=== PATIENT | female | born 1955 | race Caucasian/White ===

== ENCOUNTER → 2016-11-09 | Day surgery (SDC) | payer OTHER ==
[2016-11-07 09:36] VITALS: BMI 28.3
[~2016-11-09] MED LIST: SIMETHICONE 40 MG/0.6 ML DROPS 2,000 MG/30 ML BOTTLE PO ONE
== END ==
LOC: ORWHC2ENDO 06:21
DX: I99.8 Other disorder of circulatory system (principal); D50.9 Iron deficiency anemia, unspecified; R19.5 Other fecal abnormalities
CPT/HCPCS: 91110

== ENCOUNTER → 2017-10-25 | Outpatient (CLI) | payer OTHER ==
[2017-10-25 18:39] LABS: Basophils % (A) 0 %; Eosinophils # (A) 0.2 k/uL (0-0.7); Eosinophils % (A) 2 %; HCT 35.3 % (34.0-46.0); HGB 11.4 gm/dL (11.4-16.0); Lymphocytes # (A) 0.9 k/uL (1.0-4.8); Lymphocytes % (A) 8 %; MCH 34.1 pg (25.0-35.0); MCHC 32.4 g/dL (31.0-37.0); MCV 105.2 fL (80.0-100.0); Macrocytosis Slight; Mean Platelet Volume 8.4; Monocytes # (A) 0.7 k/uL (0-1.0); Monocytes % (A) 7 %; Neutrophils # (A) 8.8 k/uL (1.3-7.7); Neutrophils % (A) 81 %; Platelet Count 343 k/uL (150-450); RBC 3.36 m/uL (3.80-5.40); RDW 12.5 % (11.5-15.5); WBC 10.8 k/uL (3.8-10.6)
[2017-10-25 18:44] LABS: ALT 18 U/L (9-52); AST 19 U/L (14-36); Albumin 3.9 g/dL (3.5-5.0); Alkaline Phosphatase 82 U/L (38-126); Anion Gap 12 mmol/L; Blood Urea Nitrogen 18 mg/dL (7-17); Calcium 9.4 mg/dL (8.4-10.2); Carbon Dioxide 26 mmol/L (22-30); Chloride 100 mmol/L (98-107); Cholesterol 157 mg/dL (<200); Glucose 115 mg/dL (74-99); HDL Cholesterol 48 mg/dL (40-60); LDL Cholesterol,Calculated 91 mg/dL (0-99); Potassium 4.3 mmol/L (3.5-5.1); Sodium 138 mmol/L (137-145); Total Bilirubin 0.2 mg/dL (0.2-1.3); Total Protein 6.9 g/dL (6.3-8.2); Triglycerides 91 mg/dL (<150)
[2017-10-25 18:58] LABS: T4, Free (Free Thyroxine) 1.15 ng/dL (0.78-2.19)
[2017-10-26 16:49] LABS: Iron Saturation 12.33 (12.00-45.00)
[2017-10-27 02:53] LABS: Hemoglobin A1C 5.1 % (4.0-6.0)
== END | disposition home or self-care (01) ==
LOC: MMGSC 14:24
PROVIDERS: ATTEND Family Medicine
DX: D64.9 Anemia, unspecified (principal); E78.5 Hyperlipidemia, unspecified; I25.10 Atherosclerotic heart disease of native coronary artery without angina pectoris; I10 Essential (primary) hypertension
CPT/HCPCS: 36415; 80053; 80061; 82728; 83036; 83540; 83550; 84439; 84443; 85025

== ENCOUNTER 2023-01-25 12:33 | Day surgery (SDC) | payer MEDICARE ==
[~2023-01-25 12:33] MED LIST changes: +LACTATED RINGERS 1,000 ML IV SCH; -SIMETHICONE 40 MG/0.6 ML DROPS 2,000 MG/30 ML BOTTLE PO ONE
[2023-01-25] MEDS ORDERED: ONDANSETRON 4 MG/2 ML VIAL ONE (14:22)
[2023-01-25] MEDS ORDERED: DEXAMETHASONE SOD PHOSPHATE 4 MG/ML 1 ML VIAL IVP ONE (14:22)
[2023-01-25] MEDS ORDERED: ONDANSETRON 4 MG/2 ML VIAL IVP ONE (14:22)
[2023-01-25] MEDS ORDERED: PROPOFOL 10 MG/ML 20 ML VIAL IV ONE ×2 (14:24)
[2023-01-25] MEDS ORDERED: LIDOCAINE 2% INJ 20 MG/ML (2 ML VIAL) ONE (14:24)
[2023-01-25] MEDS ORDERED: GLYCOPYRROLATE 0.2 MG/ML 2 ML VIAL ONE (14:24)
[2023-01-25] MEDS ORDERED: SUCCINYLCHOLINE CHLORIDE 200 MG/10 ML VIAL IV ONE (14:24)
[2023-01-25] MEDS ORDERED: NEOSTIGMINE 1 MG/ML 10 ML VIAL ONE (14:24)
[2023-01-25] MEDS ORDERED: MIDAZOLAM 2 MG/2 ML VIAL ONE (14:24)
[2023-01-25] MEDS ORDERED: SUGAMMADEX SODIUM 200 MG/2 ML SDV IV ONE (14:24)
[2023-01-25] MEDS ORDERED: ROCURONIUM 10 MG/ML (5 ML VIAL) IV ONE (14:24)
[2023-01-25 16:07] VITALS: RESP 16; TEMP 97.4
--- NOTE | 2023-01-25 16:46 | XR ---
EXAMINATION TYPE: XR chest 1V DATE OF EXAM: 01/25/2023 COMPARISON: None INDICATION: Postbiopsy right upper lobe TECHNIQUE: Single frontal view of the chest is obtained. FINDINGS: The heart size is normal. The pulmonary vasculature is normal. There is some fullness in the right suprahilar level. No pneumothorax is evident. IMPRESSION: 1. No pneumothorax post biopsy. 2. There is some fullness in the right hilar level, this could correlate with the lung mass on CT.
[2023-01-25] MEDS ORDERED: ALBUTEROL NEBULIZED 2.5 MG/3 ML INHALATION ONE (16:54)
--- NOTE | 2023-01-25 17:09 | CT ---
EXAMINATION TYPE: CT chest wo con DATE OF EXAM: 01/25/2023 COMPARISON: PET CT 12/27/2022 HISTORY: ION CHEST PROTOCOL CT DLP: 411.90 mGycm, Automated exposure control for dose reduction was used. CONTRAST: Performed injected with 0 mL of Isovue 300. TECHNIQUE: Axial images were obtained at 5 mm thick sections. Reconstructed images are reviewed on [facility] computer in the coronal plane. FINDINGS: Portion of the thyroid visualized is normal. There is a spiculated mass in the anterior cardiomediastinal angle measuring 3.0 x 2.3 cm. Series 7 i mage 115. This was present previously and appears essentially stable in size. No enlarged mediastinal or hilar adenopathy is evident. There is a 0.9 cm pretracheal lymph node. [facility] ascending aorta diameter at the level of the main pulmonary artery is 3.4 cm. The main pulmonary artery diameter at the bifurcation is 2.9 cm. Dense coronary artery calcification is present. No sign ificant pericardial effusion is evident. Limited CT sections are obtained through the upper abdomen. Abdomen is essentially unremarkable. IMPRESSIONS: 1. Stable appearing anterior right mid lung mass measuring 3.0 x 2.3 cm.
[2023-01-25] MEDS ORDERED: ACETAMINOPHEN TAB 500 MG TAB ONE (17:22)
[2023-01-25 17:24] VITALS: BP 108/54; PULSE 73
[2023-01-25] MEDS ORDERED: ACETAMINOPHEN TAB 500 MG TAB PO ONE (17:25)
--- NOTE | 2023-01-25 18:55 | FL ---
Intraoperative/procedural fluoroscopic services were provided. Total fluoroscopy time is 4 minutes 10 seconds with a total of 0 submitted images to PACS. Please see the operative/procedural note for fur ther details. DAP: 7.22
== END 2023-01-25 17:46 | disposition home or self-care (01) ==
LOC: ORWHC2ENDO 12:33
PROVIDERS: ATTEND Internal Medicine Critical Care Medicine
DX: C34.11 Malignant neoplasm of upper lobe, right bronchus or lung (principal); I10 Essential (primary) hypertension; I25.10 Atherosclerotic heart disease of native coronary artery without angina pectoris; E78.5 Hyperlipidemia, unspecified; J44.9 Chronic obstructive pulmonary disease, unspecified; F17.210 Nicotine dependence, cigarettes, uncomplicated; Z79.02 Long term (current) use of antithrombotics/antiplatelets; Z79.51 Long term (current) use of inhaled steroids; Z79.899 Other long term (current) drug therapy; Z95.5 Presence of coronary angioplasty implant and graft
CPT/HCPCS: 71045; 71250; 31628; 31629; 31623; 31624; 31652; S2900; J2250; J0330; J1100; J2710; J2405; J2704; J2001; 88108; 88173; 88305; 88341; 88342

== ENCOUNTER → 2023-02-28 | Outpatient (CLI) | payer MEDICARE ==
--- NOTE | 2023-01-25 15:38 | P.PCN ---
Date of Procedure: 01/25/23 Operative Findings: Preoperative Diagnosis: Right upper lobe mass Postoperative Diagnosis: Right upper lobe mass Procedure(s) Performed: Flexible bronchoscopy Robotic-assisted bronchoscopy and addition to radial ultrasound evaluation of the lung mass Robotic-assisted test monitor needle aspirate, transbronchial biopsies, transbronchial brushing of the right upper lobe mass in addition to a bronchioloalveolar lavage Endobronchial ultrasound Anesthesia: JULISAA Surgeon: Sophia Granger Estimated Blood Loss (ml): 0 Pathology: other Condition: stable Disposition: same day Operative Findings: A physical exam was performed. Informed consent was obtained from the patient after explaining all the risks (pneumothorax, life threatening bleeding, infection and adverse effects due to medications), benefits and alternatives to the procedure which the patient appeared to understand and so stated. The patient was connected to the monitoring devices. General anesthesia was induced and the patient was intubated by anesthesia. A final timeout was performed and the procedure confirmed by the attending staff bronchoscopist. The bronchoscope was inserted and the airway examined. The flexible bronchoscope was removed and the robotic bronchoscope was inserted. Registration was completed. I next guided the robotic bronchoscope using the navigation system into the right upper lobe anterior segment segment. Once in proper position, the bronchoscope was frozen. The radial EBUS probe was placed through the bronchoscope and confirmed abnormal u/s images vs normal lung. A needle was placed through the working channel and under fluoroscopic guidance, we sampled the area thought to have the mass twice. We then used a cloud biopsy pattern with ultrasound confirmation for 4 additional passes with the needle. U/S evaluation was then used to reconfirm location. Forceps were next introduced through working channel and extended the appropriate distance and 3 transbronchial biopsies were performed using fluoroscopic guidance. The u/s probe was then reinserted to confirm location. When confirmed this process was repeated for a total of 5-6 transbronchial biopsies. After reassessment with EBUS, a brush was placed through the extendable working channel for 1 pass with fluoroscopic guidance. U/S evaluation was then used to confirm location. 40ml of saline was then instilled into the area of the lesion. The robotic bron choscope was removed and the airway inspected with a flexible bronchoscope and 10 ml of effluent from the BAL was collected. The flexible bronchoscope was removed and the EBUS-TBNA bronchoscope was used to intubate the pateint through the ETT. An ultrasound examination identified all major landmarks was completed.. Entire mediastinum was evaluated including the various lymph node stations. This was done using the endobronchial ultrasound. There was no significant mediastinal lymphadenopathy identified on ultrasound. All of the identified mediastinal lymph nodes less than 5 mm in size. The patient was then extubated with the EBUS-TBNA bronchoscope and intubated with an Olympus IT bronchoscope without difficutly. The airways were inspected and cleared of secretions and blood. Fluoroscopic check for pneumothorax was negative upon completion of the procedure. There was 0 ml blood loss with the procedure.
[~2023-02-28] MED LIST changes: -LACTATED RINGERS 1,000 ML IV SCH; +REGADENOSON 0.4 MG/5 ML SYRINGE IV PRN
--- NOTE | 2023-02-28 11:01 | NM ---
EXAMINATION TYPE: NM stress lexiscan cardiolite DATE OF EXAM: 02/28/2023 COMPARISON: NONE CLINICAL INDICATION: Female, 67 years old with history of R06.0 I25.10; TECHNIQUE: After the intravenous administration of 9.7 mCi Tc 99m Sestamibi - Cardiolite resting SPE CT images acquired 45 minutes post injection. The patient received 0.4mg Lexiscan, 25.5 mCi Tc 99m Sestamibi - Stress images obtained [address] injection FINDINGS: Review of stress and rest SPECT images demonstrates a perfusion asymmetry in the apical lateral myoca rdium. Most likely are. Gated analysis shows normal wall motion with an estimated left ventricular e jection fraction of 69 %. IMPRESSION: Tiny area of perfusion asymmetry apical lateral myocardium. Favor artifact over small area of stress- induced reversible ischemia. Recommend clinical correlation
--- NOTE | 2023-02-28 12:35 | CA ---
Lexiscan Nuclear Stress Test Report Name: Katelin Parish Exam Date: 02/28/2023 09:47 Exam Location: [facility] Ht (in): 65 Wt (lb): 175 BSA: 1.87 Ordering Phys: Luis Fernando Baeza MD Referring Phys: LUIS FERNANDO BAEZA,, Technologist: Darrian Guerra Age: 67 Gender: F : 1955 Procedure CPT: Indications: R06.0 I25.10 ICD-10 Codes: Patient History: Medications: SEE LIST Meds past 24 hrs: Pretest Chest Pain: STRESS TEST Lexiscan Protocol Exercise Duration (min:sec): 01:[address] Depressions (mm): Angina Score: Byrd Score: Resting HR (bpm): 69 Peak HR (bpm): 86 Resting BP (mmHg): 150 / 77 Peak BP (mmHg): 146 / 76 MPHR: 152 Target HR: 129 % MPHR: 57 METS: 1.0 Total Dose: Peak Dose: Atropine: Double Product: 76243 BP Response: Stress Termination: INFUSION COMPLETE Stress Symptoms: FLUSHED,HEADACHE Stress Summary: ECG ANALYSIS Resting ECG: Stress ECG: CONCLUSIONS At baseline EKG showed normal sinus rhythm, normal axis, poor R- wave progression, no significant ST or T wave abnormalities. Patient recieved IV infusion of Lexiscan 0.4mg and at peak infusion EKG showed no significant change from baseline. Conclusions: 1. Normal EKG response to Lexiscan infusion 2. Nuclear imaging to be reported separately. Dr. Richard Parr DO (Electronically Signed) Final Date: 28 February 2023 12:34
== END | disposition home or self-care (01) ==
LOC: RADNMMAIN 08:20
PROVIDERS: ATTEND Thoracic Surgery (Cardiothoracic Vascular Surgery)
DX: I25.10 Atherosclerotic heart disease of native coronary artery without angina pectoris (principal); R06.00 Dyspnea, unspecified
CPT/HCPCS: 93017; 78452; A9500; J2785

== ENCOUNTER → 2023-03-06 | Outpatient (CLI) | payer MEDICARE ==
[2023-03-06 10:50] LABS: INR 0.9 (<1.2); Partial Thromboplastin Time 22.9 sec (22.0-30.0); Prothrombin Time 9.6 sec (9.0-12.0)
[2023-03-06 15:25] LABS: Appearance,Urine Clear (Clear); Bilirubin,Urine Negative (Negative); Blood,Urine Negative (Negative); Color,Urine Yellow (Yellow); Ketones,Urine Negative (Negative); Nitrite,Urine Negative (Negative); PH, Urine 6.5; Specific Gravity,Urine 1.018 (1.001-1.030); Urobilinogen,Urine 0.2 E.U./DL
[2023-03-06 15:55] LABS: Blood Urea Nitrogen 18.5 mg/dL (9.0-27.0); Carbon Dioxide 25.4 mmol/L (21.6-31.8); Chloride 104 mmol/L (96-109); Glucose 110 mg/dL (70-110); Sodium 140 mmol/L (135-145)
[2023-03-06 17:16] LABS: Basophils # (A) 0.02 X 10*3/uL (0.00-0.10); Basophils % (A) 0.2 %; Eosinophils # (A) 0 X 10*3/uL (0.04-0.35); Eosinophils % (A) 0 %; HCT 36.7 % (37.2-46.3); HGB 11.6 d/dL (12.0-15.0); Lymphocytes # (A) 0.76 X 10*3/uL (0.90-5.00); MCH 32.8 pg (27.0-32.0); MCHC 31.6 d/dL (32.0-37.0); MCV 103.7 FL (80.0-97.0); Mean Platelet Volume 10.6 FL (9.5-12.2); Monocytes # (A) 0.71 X 10*3/uL (0.20-1.00); Monocytes % (A) 8.4 %; NRBC Per 100 WBC 0 X 10*3/uL (0.00-0.01); Neutrophils # (A) 6.93 X 10*3/uL (1.80-7.70); Neutrophils % (A) 82.2 %; Platelet Count 403 X 10*3/uL (140-440); RBC 3.54 X 10*6/uL (4.10-5.20); RDW 13.8 % (11.5-14.5); WBC 8.44 X 10*3/uL (4.50-10.00)
[2023-03-06 17:27] LABS: Bacteria,Urine None Seen (None Seen)
== END | disposition home or self-care (01) ==
LOC: LABPAT 09:15
PROVIDERS: ATTEND Thoracic Surgery (Cardiothoracic Vascular Surgery)
DX: Z01.818 Encounter for other preprocedural examination (principal); C34.11 Malignant neoplasm of upper lobe, right bronchus or lung; E87.5 Hyperkalemia; R06.00 Dyspnea, unspecified; R94.31 Abnormal electrocardiogram [ECG] [EKG]; Z79.899 Other long term (current) drug therapy
CPT/HCPCS: 36415; 80051; 81001; 82565; 82947; 84520; 85025; 85610; 85730; 93005

== ENCOUNTER 2023-03-08 07:24 | Inpatient (IN) | payer MEDICARE ==
[2023-03-08] MEDS ORDERED: ONDANSETRON 4 MG/2 ML VIAL IVP ONE (07:30)
[2023-03-08] MEDS ORDERED: LACTATED RINGERS 1,000 ML IV SCH (07:30)
[2023-03-08] MEDS ORDERED: LIDOCAINE 1% (10MG/ML) FOR IV START INTRADERMA PRN (07:30)
[2023-03-08] MEDS ORDERED: MIDAZOLAM 2 MG/2 ML VIAL IV PRN (07:30)
[2023-03-08] MEDS ORDERED: DEXAMETHASONE SOD PHOSPHATE 4 MG/ML 1 ML VIAL IV ONE (07:30)
--- NOTE | 2023-03-08 09:30 | P.ANPRN ---
Procedure Note - Anesthesia - Nerve Block Performed Bilateral Erector Spinae Single Time Out Performed: Yes Date of Procedure: 03/08/23 Procedure Start Time: 09:02 Procedure Stop Time: 09:10 Location of Patient: PreOp Indication: Analgesia, Requested by Surgeon Sedation Type: Sedate with meaningful contact maintained Preparation: Sterile Prep Position: Sitting Needle Types: Pajunk Needle Gauge: 20 Ultrasound used to visualize needle placement: Yes Ultrasound used to observe medication spread: Yes Injectate: Other (see comment) (0.25% Ropivicaine 10 ml left, 10 ml right) Blood Aspirated: No Pain Paresthesia on Injection Noted: No Resistance on Injection: Normal Image Stored and Saved: Yes Events: Uneventful and Well Tolerated - Invasive Line Left Arterial Line Time Out Performed: Yes Date of Procedure: 03/08/23 Preparation: Sterile Prep Arterial Line Location: Radial Ultrasound Used: Yes Purpose - Visualization and Identification of Vasculature: Yes Needle Guage: 20 G Left radial a line Image Stored and Saved: No Narrative: Central line placement per sterile protocol utilized.
[2023-03-08] MEDS ORDERED: fentaNYL (PF) 50 MCG/ML 2 ML AMP IVP ONE (09:44)
[2023-03-08] MEDS ORDERED: LIDOCAINE 2% INJ 20 MG/ML (2 ML VIAL) ONE (09:52)
[2023-03-08] MEDS ORDERED: SODIUM CHLORIDE 0.9% (PF) 10 ML VIAL ONE (09:52)
[2023-03-08] MEDS ORDERED: KETOROLAC 30 MG/ML 1 ML VIAL ONE (09:52)
[2023-03-08] MEDS ORDERED: NEOSTIGMINE 1 MG/ML 10 ML VIAL ONE (09:52)
[2023-03-08] MEDS ORDERED: ROCURONIUM 10 MG/ML (5 ML VIAL) IV ONE (09:52)
[2023-03-08] MEDS ORDERED: WATER FOR INJECTION, STERILE 10 ML VIAL IV ONE (09:52)
[2023-03-08] MEDS ORDERED: GLYCOPYRROLATE 0.2 MG/ML 2 ML VIAL ONE (09:52)
[2023-03-08] MEDS ORDERED: ePHEDrine 50 MG/ML 1 ML VIAL ONE (09:52)
[2023-03-08] MEDS ORDERED: KETAMINE 10 MG/ML 20 ML VIAL ONE (09:52)
[2023-03-08] MEDS ORDERED: HYDROmorphone (PF) 1 MG/ML ONE (09:52)
[2023-03-08] MEDS ORDERED: ALBUTEROL HFA INHALER INHALATION ONE (09:52)
[2023-03-08] MEDS ORDERED: PHENYLEPHRINE-0.9% NACL SYG 1,000 MCG/10 ML SYRINGE ONE (09:52)
[2023-03-08] MEDS ORDERED: fentaNYL (PF) 50 MCG/ML 2 ML AMP ONE (09:52)
[2023-03-08] MEDS ORDERED: ROPIVACAINE 5 MG/ML 30 ML VIAL ONE (09:52)
[2023-03-08] MEDS ORDERED: SUCCINYLCHOLINE CHLORIDE 200 MG/10 ML VIAL IV ONE (09:52)
[2023-03-08] MEDS ORDERED: PROPOFOL 10 MG/ML 20 ML VIAL IV ONE (09:52)
[2023-03-08] MEDS ORDERED: BUPIVACAINE (PF) 0.5% 30 ML VIAL SQ ONE ×2 (11:03)
[2023-03-08] MEDS ORDERED: LACTATED RINGERS 1,000 ML IV ONE (13:10)
--- NOTE | 2023-03-08 13:37 | P.OP ---
Date of Procedure: 03/08/23 Preoperative Diagnosis: Non small cell lung cancer Postoperative Diagnosis: Same Procedure(s) Performed: 1. Bronchoscopy 2. Right robotic assisted thorascopic surgery with right upper lobectomy 3. Mediastinal lymph node dissection Anesthesia: JULISAA Surgeon: Bernardino Baeza Key Account Representative #1: Christo Salinas Estimated Blood Loss (ml): 50 Pathology: other (RUL, RUL mass mediastinal margin, LN stations 4,7,8,9,10,11,12) Condition: stable Disposition: PACU Indications for Procedure: This patient is a 67 year-old female who had an episode of hemoptysis which prompted a CT scan that showed a 3cm RUL nodule. Further work-up including PET/CT scan revealed FDG avidity in the nodule. We then pursued tissue biopsy which revealed NSCLC consistent with SCC. Given her good PFT's and good functional status, lobectomy was recommended. Operative Findings: Right upper lobe mass adherent to the mediastinal pleura. This was shaved off and a piece was sent for pathology as margin. Surgical clips left there incase this margin is positive for radiation. Description of Procedure: The patient underwent left radial arterial line placement in the pre-operative suite. She was brought back to the operating room and placed on the table in the supine position. She was intubated with a 39F left sided ELENA which was confirmed with bronchoscopy. A diagnostic bronchoscopy was also performed which revealed no lesions or abnormalities in the entire tracheo-bronchial tree. There was minimal to no secretions. The patient was then positioned in the left lateral decubitus position and her right chest was prepped and draped in the usual sterile fashion. The double lumen tube position was once again checked using bronchoscopy. A time-out was performed and antibiotics were given. The left lung was isolated. We made a 1cm incision in the 8th intercostal space anterior axillary line. The 8mm trocar was inserted into the chest bluntly. The robotic camera was inserted and there was no injury to the lung and there was good lung isolation. We placed then placed 12mm trocars 10cm anteriorly and 10cm posteriorly in the 8th intercostal space. A 4th 8mm port was placed posteriorly in the 7th ICS posteriorly. We placed a 15mm assistant manager retail port in between ports 1 and 2 10th ICS above the diaphragm. The Da Felicia Xi robot was then docked. We then approached the fissure and performed some dissection along the inter-lobar fissure using the bipolar cautery. Attention was then turned towards the inferior pulmonary ligament which was taken down using the bipolar cautery. This dissection was carried upward with the bipolar cautery posteriorly and anteriorly along the mediastinal pleura.Anteriorly the tumor was adherent to the mediastinal pleura and this was peeled off bluntly. Posteriorly we obtained level 7, 8 and 9 lymph nodes. At this point the area under and above the azygous was dissected out. Level 10 and 4 nodes were harvested here. The upper lobe bronchus was dissected free from the bronchus intermedius. The level 12 node was harvested here. I then turned my attention to the superior pulmonary vein which was circumferentially dissected free and encircled with a vessel loop taking care to preserve the middle lobe vein. The robotic white load stapler was fired across the vein. At this point, the truncus anteriorosus was identified, encircled and stapled using the robotic white load.. The 11 node was harvested at this time and the posterior ascending artery was identified next, encircled and stapled using a robotic white load. Next, the bronchus to the upper lobe was circumferentially dissected, encircled with a vessel loop and stapled using the robotic green load. Lastly, the anterior fissure was divided using serial robotic blue loads and the posterior fissure was divided using serial robotic black loads. The area where the tumor was adherent to the mediastinal pleura anterior to the azygous vein was resected avoiding injury to the phrenic nerve and sent for permanent section. Surgical clips were placed here in case this margin was positive. The lung was placed in a retrieval bag, and the right chest was irrigated with water and a leak test on the bronchus was performed which was negative. The robot was undocked, the specimen was removed from the chest cavity and a 28F chest tube was placed via the most anterior incision. The patient was extubated with an intermitternt air leak.
[2023-03-08] MEDS: HYDROmorphone 0.5 MG/0.5 ML SYRINGE IVP PRN ×4 (13:55→23:21)
[2023-03-08] MEDS ORDERED: ONDANSETRON 4 MG/2 ML VIAL IVP PRN (14:12)
[2023-03-08] MEDS ORDERED: traMADol 50 MG TAB PO PRN (14:12)
[2023-03-08] MEDS ORDERED: IPRATROPIUM-ALBUTEROL 3 ML NEB IH PRN (14:12)
[2023-03-08] MEDS ORDERED: DEXTROSE 5%-0.45% NACL 1,000 ML IV SCH (14:12)
[2023-03-08] MEDS ORDERED: HYDROmorphone 0.5 MG/0.5 ML SYRINGE IVP ONE (14:18)
--- NOTE | 2023-03-08 14:25 | XR ---
EXAMINATION TYPE: XR chest 1V portable DATE OF EXAM: 03/08/2023 2:19 PM COMPARISON: Chest radiographs from 03/08/2023 TECHNIQUE: XR chest 1V portable Portable AP radiograph of the chest. CLINICAL INDICATION:Female, 67 years old with history of post lobectomy; FINDINGS: Lungs/Pleura: Postsurgical changes from right-sided lobectomy with surgical clips in the right pulmon usman hilum. No sizable pneumothorax. Pulmonary vascularity: Unremarkable. Heart/mediastinum: Cardiomediastinal silhouette is enlarged.. Atherosclerotic calcifications are see n in the aorta. Musculoskeletal: No acute osseous pathology. Levoscoliotic curvature of the thoracic spine. Other findings: Subcutaneous emphysema demonstrated within the right neck. Surgical clips in the neck . Lines/Tubes: Right-sided chest tube is directed towards the lung apex. IMPRESSION: Postsurgical changes from right-sided lobectomy with right-sided chest tube directed towards the lung apex with right neck subcutaneous emphysema. No sizable pneumothorax.
--- NOTE | 2023-03-08 15:09 | P.CNPUL ---
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 Endobronchial ultrasound was negative for mediastinal lymphadenopathy. Early- stage non-small cell lung cancer. She was referred to cardiothoracic surgery for a right upper lobectomy. She was brought in electively today. She did undergo a bronchoscopy, right robotic-assisted thoracoscopic surgery with right upper lobectomy, mediastinal lymph node dissection. She is seen today in the recovery room. She is awake and alert. Currently on 3 L nasal cannula with O2 saturations in the mid to upper 90s. Afebrile. Hemodynamically stable. Right- sided chest tube remains in place to Pleur-evac. Positive leak. 60 ML's of serosanguineous fluid out thus far. Chest x-ray reveals postsurgical changes from right-sided lobectomy with right-sided chest tube in place. Right neck subcutaneous emphysema. No sizable pneumothorax. She is on cefazolin. Continued on DuoNeb inhalations. Heparin for DVT prophylaxis. Educated regarding the use of the incentive spirometer. Review of Systems REVIEW OF SYSTEMS: CONSTITUTIONAL: Denies any recent significant weight loss or weight gain. EYES: Denies change in vision. EARS, NOSE, MOUTH, THROAT: Denies headaches, denies sore throat. CARDIOVASCULAR: Denies chest pain, palpitations or syncopal episodes. RESPIRATORY: Denies shortness of breath, cough, congestion or hemoptysis. GASTROINTESTINAL: Denies change in appetite, denies abdominal pain GENITOURINARY: Denies hematuria, denies infections. MUSKULOSKELETAL: Positive for pain at the right chest surgical site. INTEGUMENTARY: Denies rash, denies eczema. NEUROLOGICAL: Denies recent memory loss, no recent seizure activity. PSYCHIATRIC: Denies anxiety, denies depression. HEMATOLOGIC/LYMPHATIC: Denies anemia, denies enlarged lymph nodes. Past Medical History Past Medical History: Asthma, Cancer, Hyperlipidemia, Hypertension Additional Past Medical History / Comment(s): ANEMIA, nodule on lung, recent dx. lung cancer History of Any Multi-Drug Resistant Organisms: None Reported Past Surgical History: Heart Catheterization With Stent Additional Past Surgical History / Comment(s): STENTS X 3, recent bronch. in January. D & C. COLONOSCOPY. EGD. rt carotid endartectomy Past Anesthesia/Blood Transfusion Reactions: No Reported Reaction Additional Past Anesthesia/Blood Transfusion Reaction / Comment(s): HAD BLOOD TRANSFUSION 09/16/16 no issues Date of Last Stent Placement:: 08/2015 Smoking Status: Current every day smoker - Past Family History Father Family Medical History: Cancer Medications and Allergies Home Medications Medication Instructions Recorded Confirmed Type Clopidogrel Bisulfate [Clopidogrel] 75 mg PO DAILY 11/07/16 03/08/23 History Enalapril Maleate 20 mg PO BID 11/07/16 03/08/23 History Ferrous Sulfate [Feosol] 325 mg PO BID 11/07/16 03/08/23 History NIFEdipine XL [Procardia XL] 60 mg PO DAILY 11/07/16 03/08/23 History carvediloL [Coreg] 12.5 mg PO BID 11/07/16 03/08/23 History Isosorbide Mononitrate [Isosorbide 30 mg PO DAILY 01/23/23 03/08/23 History Mononitrate ER] Montelukast [Singulair] 10 mg PO HS 01/23/23 03/08/23 History Multivitamins, Thera [Multivitamin 1 tab PO DAILY 01/23/23 03/08/23 History (formulary)] Rosuvastatin Calcium 40 mg PO DAILY 01/23/23 03/08/23 History Aspirin 81 mg PO DAILY 03/05/23 03/08/23 History Ezetimibe [Zetia] 10 mg PO DAILY 03/05/23 03/08/23 History Solifenacin Succinate [Vesicare] 5 mg PO DAILY 03/05/23 03/08/23 History Allergies Allergy/AdvReac Type Severity Reaction Status Date / Time No Known Allergies Allergy Verified 03/08/23 08:07 Physical Exam Vitals: Vital Signs Temp Pulse Resp BP BP Pulse Ox 03/08/23 14:45 66 14 127/69 98 03/08/23 14:30 63 14 131/64 97 03/08/23 14:15 73 14 127/63 97 03/08/23 14:04 69 14 140/67 95 03/08/23 13:49 73 14 147/69 95 03/08/23 13:34 96.8 F L 71 12 155/74 98 03/08/23 09:30 65 16 122/64 96 03/08/23 08:13 97.2 F L 70 16 132/64 96 Intake and Output 03/07/23 03/08/23 03/08/23 22:59 06:59 14:59 Intake Total 2150 Output Total 310 Balance 1840 Intake: IV 2150 Output: Urine 200 Estimated Blood Loss 110 Other: Weight 81 kg GENERAL EXAM: Alert, pleasant 67-year-old female patient, on 3 L nasal cannula, fairly comfortable in no apparent distress. HEAD: Normocephalic. EYES: Normal reaction of pupils, equal size. NOSE: Clear with pink turbinates. THROAT: No erythema or exudates. NECK: No masses, no JVD. CHEST: No chest wall deformity. Right-sided chest tube in placed to Pleur-evac. Positive leak. LUNGS: Equal air entry with crackles, few scattered rhonchi of the right lung base. CVS: S1 and S2 normal with no audible murmur, regular rhythm. ABDOMEN: No hepatosplenomegaly, normal bowel sounds, no guarding or rigidity. SPINE: No scoliosis or deformity SKIN: No rashes CENTRAL NERVOUS SYSTEM: No focal deficits, tone is normal in all 4 extremities. EXTREMITIES: There is no peripheral edema. No clubbing, no cyanosis. Peripheral pulses are intact. Results - Laboratory Findings CBC and BMP: 03/09/23 06:31 03/09/23 06:31 Abnormal lab findings: Abnormal Labs 03/06/23 09:49 Crossmatch See Detail - Diagnostic Findings Chest x-ray: image reviewed Assessment and Plan Assessment: Early-stage non-small cell lung cancer/squamous cell carcinoma of the right lung. Status post bronchoscopy, right robotic-assisted thorascopic surgery with right upper lobectomy, mediastinal lymph node dissection. Postoperative day #0. Acute hypoxemic respiratory failure secondary to above, currently on 3 L nasal cannula Chronic and ongoing tobacco dependence, suspected COPD Coronary artery disease Hypertension Hyperlipidemia Plan: The patient was seen and evaluated Chest x-ray, labs and medications reviewed Continue bronchodilators Heparin for DVT prophylaxis Educated regarding the use of the incentive spirometer Educated regarding the importance of complete smoking cessation We will continue to follow and make further recommendations based on her clinical status I have personally seen and examined the patient, performed the documentation and the assessment and plan as written. Number of minutes spent on the visit: 20.
[2023-03-08] MEDS: IPRATROPIUM-ALBUTEROL 3 ML NEB IH SCH ×2 (15:49→20:21)
[2023-03-08] MEDS: carvediloL 12.5 MG TAB PO SCH (17:42)
[2023-03-08] MEDS: KETOROLAC 15 MG/ML 1 ML VIAL IVP SCH ×2 (17:42→23:20)
[2023-03-08] MEDS: FERROUS SULFATE 325 MG TAB PO SCH (20:11)
[2023-03-08] MEDS: ACETAMINOPHEN TAB 325 MG TAB PO PRN (20:11)
[2023-03-08] MEDS: lisinopriL 20 MG TAB PO SCH (20:11)
[2023-03-08] MEDS: MONTELUKAST 10 MG TAB PO SCH (21:21)
[2023-03-08] MEDS: traMADol 50 MG TAB PO PRN (22:06)
[2023-03-08] MEDS: HEPARIN SODIUM,PORCINE/PF 5,000 UNIT/0.5 ML SYRINGE SQ SCH (23:57)
[2023-03-09] MEDS: HYDROmorphone 0.5 MG/0.5 ML SYRINGE IVP PRN ×3 (02:25→11:53)
[2023-03-09] MEDS: carvediloL 12.5 MG TAB PO SCH ×2 (06:29→20:56)
[2023-03-09] MEDS: PANTOPRAZOLE 40 MG TABLET PO SCH (06:29)
[2023-03-09] MEDS: KETOROLAC 15 MG/ML 1 ML VIAL IVP SCH ×3 (06:29→18:21)
[2023-03-09 06:50] LABS: Basophils % (A) 0 %; Eosinophils % (A) 0 %; HCT 36.5 % (34.0-46.0); HGB 11.3 gm/dL (11.4-16.0); Hypochromasia Slight; Lymphocytes # (A) 0.7 k/uL (1.0-4.8); Lymphocytes % (A) 7 %; MCH 32.5 pg (25.0-35.0); MCV 104.9 fL (80.0-100.0); Macrocytosis Slight; Monocytes # (A) 0.8 k/uL (0-1.0); Monocytes % (A) 8 %; Neutrophils # (A) 8.5 k/uL (1.3-7.7); Neutrophils % (A) 84 %; Platelet Count 332 k/uL (150-450); RBC 3.48 m/uL (3.80-5.40); RDW 13.3 % (11.5-15.5); WBC 10.1 k/uL (3.8-10.6)
[2023-03-09 06:59] LABS: African American GFR (CKD) 85 (>60 ml/min/1.73 sqM); Anion Gap 5 mmol/L; Blood Urea Nitrogen 14 mg/dL (7-17); Calcium 8.7 mg/dL (8.4-10.2); Carbon Dioxide 28 mmol/L (22-30); Chloride 103 mmol/L (98-107); Glucose 111 mg/dL (74-99); Non-African American GFR(CKD) 74 (>60 ml/min/1.73 sqM); Potassium 4.8 mmol/L (3.5-5.1); Sodium 136 mmol/L (137-145)
[2023-03-09] MEDS ORDERED: MAGNESIUM HYDROXIDE 2,400 MG/30 ML CUP PO PRN (07:53)
--- NOTE | 2023-03-09 08:36 | XR ---
EXAMINATION TYPE: XR chest 1V DATE OF EXAM: 03/08/2023 COMPARISON: 03/08/2023 INDICATION: Postlobectomy TECHNIQUE: Single frontal view of the chest is obtained. FINDINGS: The heart size is normal. The pulmonary vasculature is normal. Some mild plate atelectasis is developing at the left lower peripheral lung base. There is mild eleva tion of the right diaphragm. Right-sided chest tube is present. Subcutaneous emphysema seen in the ne ck. No pneumothorax is evident. There is some fullness at the right hilar postsurgical site which is stable from recent comparison. IMPRESSION: 1. Right-sided chest tube, no pneumothorax evident. 2. Diminishing right subcutaneous emphysema.
--- NOTE | 2023-03-09 09:06 | P.PN ---
Subjective Progress Note Date: 03/09/23 Principal diagnosis: Non-small cell lung cancer. Previous medical history of tobacco dependence, COPD, coronary artery disease status post PCI in 2016, hypertension, hyperlipidemia, right carotid endarterectomy POD #1 bronchoscopy, right robotic assisted thoracoscopic surgery with right upper lobectomy, mediastinal lymph node dissection The patient was seen and examined his breathing sitting up in a recliner on the cardiac stepdown unit in no acute distress. States post surgical pain is mostly controlled with current medication regimen, denies shortness of breath. Curr ently on room air. Right pleural chest tube present to continuous wall suction, no air leak present. Labs, chest x-ray reviewed. No other new concerns. Objective - Vital Signs Vital signs: Vital Signs Temp 98 F 03/09/23 00:00 Pulse 80 03/09/23 04:00 Resp 18 03/09/23 04:00 BP 138/74 03/09/23 04:00 Pulse Ox 97 03/09/23 04:00 FiO2 Intake & Output 03/08/23 03/09/23 03/09/23 18:59 06:59 18:59 Intake Total 2150 10 Output Total 385 2000 Balance 1765 -1999 10 Weight 81 kg Intake: IV 2150 10 Invasive Line 1 5 Invasive Line 2 5 Output: Chest Tube Drainage 75 Chest Tube Right 75 Urine 200 2000 Estimated Blood Loss 110 Other: Voiding Method Indwelling Catheter Indwelling Catheter Toilet - Exam CONSTITUTIONAL: Appears comfortable, cooperative, no acute distress RESPIRATORY: Lungs sounds diminished bilaterally. Respirations even, nonlabored. Currently on room air with oxygen saturation 97%. Able to achieve 500 mL on incentive spirometry. Strong cough. CARDIOVASCULAR: S1, S2 present. Regular rate and rhythm, sinus rhythm on telemetry. Palpable peripheral pulses bilaterally. No edema present. No calf pain or tenderness noted. SCDs present. GASTROINTESTINAL: Abdomen soft, nontender, nondistended. Hypoactive bowel sounds present 4 quadrants. Tolerating diet GENITOURINARY: Christiansen was present overnight, discontinued this morning, due to void INTEGUMENTARY: Skin is warm and dry with evidence of good perfusion NEUROLOGIC: Cranial nerves II through XII intact MUSKULOSKELETAL: Able to move all extremities, strength equal bilaterally, gait normal PSYCHIATRIC: Alert and oriented to person place and time, appropriate affect, intact judgment and insight INVASIVE LINES AND TUBES: Right pleural chest tube present and connected to wall suction, no air leaks present, 180 mL serosanguineous drainage since surgery - Allied health notes Allied health notes reviewed: nursing - Labs CBC & Chem 7: 03/09/23 06:31 03/09/23 06:31 Labs: Abnormal Lab Results - Last 24 Hours (Table) 03/06/23 03/09/23 03/09/23 Range/Units 09:49 06:31 06:31 RBC 3.48 L (3.80-5.40) m/uL Hgb 11.3 L (11.4-16.0) gm/dL MCV 104.9 H (80.0-100.0) fL Neutrophils # 8.5 H (1.3-7.7) k/uL Lymphocytes # 0.7 L (1.0-4.8) k/uL Sodium 136 L (137-145) mmol/L Glucose 111 H (74-99) mg/dL Crossmatch See Detail - Imaging and Cardiology Chest x-ray: report reviewed, image reviewed Assessment and Plan Assessment: Non-small cell lung cancer, status post bronchoscopy, right robotic assisted thoracoscopic surgery with right upper lobectomy, mediastinal lymph node dissection Tobacco dependence COPD Coronary artery disease status post PCI in 2016 Hypertension Hyperlipidemia Previous right carotid endarterectomy Plan: Chest tube placed to waterseal, monitor output Follow-up on pathology Encourage incentive spirometry use 10 times every hour while awake. Bronchodilators per pulmonology Increase activity, ambulate as tolerated GI/DVT prophylaxis Pain control with current medication regimen We'll repeat chest x-ray in the morning More recommendations to follow based on patient's progress
[2023-03-09] MEDS: IPRATROPIUM-ALBUTEROL 3 ML NEB IH SCH ×4 (09:09→21:05)
[2023-03-09] MEDS: SENNOSIDES-DOCUSATE SODIUM 1 EACH TAB PO SCH ×2 (09:11→20:56)
[2023-03-09] MEDS: HEPARIN SODIUM,PORCINE/PF 5,000 UNIT/0.5 ML SYRINGE SQ SCH ×2 (09:11→17:35)
[2023-03-09] MEDS: ATORVASTATIN 80 MG TAB PO SCH (09:11)
[2023-03-09] MEDS: EZETIMIBE 10 MG TAB PO SCH (09:11)
[2023-03-09] MEDS: FERROUS SULFATE 325 MG TAB PO SCH ×2 (09:11→20:56)
[2023-03-09] MEDS: CLOPIDOGREL 75 MG TAB PO SCH (09:11)
[2023-03-09] MEDS: ASPIRIN 81 MG PO SCH (09:11)
[2023-03-09] MEDS: TROSPIUM CHLORIDE 20 MG TABLET PO SCH (09:12)
[2023-03-09] MEDS: MULTIVITAMINS, THERA 1 EACH TAB PO SCH (09:12)
[2023-03-09] MEDS: ISOSORBIDE MONONITRATE ER 30 MG TAB.ER.24H PO SCH (09:12)
[2023-03-09] MEDS: lisinopriL 20 MG TAB PO SCH ×2 (11:48→20:55)
--- NOTE | 2023-03-09 13:55 | P.PN ---
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 Endobronchial ultrasound was negative for mediastinal lymphadenopathy. Early- stage non-small cell lung cancer. She was referred to cardiothoracic surgery for a right upper lobectomy. She was brought in electively today. She did undergo a bronchoscopy, right robotic-assisted thoracoscopic surgery with right upper lobectomy, mediastinal lymph node dissection. She is seen today in the recovery room. She is awake and alert. Currently on 3 L nasal cannula with O2 saturations in the mid to upper 90s. Afebrile. Hemodynamically stable. Right- sided chest tube remains in place to Pleur-evac. Positive leak. 60 ML's of serosanguineous fluid out thus far. Chest x-ray reveals postsurgical changes from right-sided lobectomy with right-sided chest tube in place. Right neck subcutaneous emphysema. No sizable pneumothorax. She is on cefazolin. Continued on DuoNeb inhalations. Heparin for DVT prophylaxis. Educated regarding the use of the incentive spirometer. The patient is seen today 03/09/2023 in follow-up on the selective care unit. She is currently sitting up at the bedside. Awake and alert in no acute distress. Maintaining good O2 saturation in the 90s on room air. Afebrile. Hemodynamically stable. X-ray reveals right-sided chest tube in place. No pneumothorax noted. Diminishing right subcutaneous emphysema. Chest tube remains to Pleur-evac and can continuous wall suction. No air leak noted. Approximately 180 MLS serosanguineous return since surgery. She is working well with the incentive spirometer. Continued on bronchodilators. Heparin for DVT prophylaxis. Pain is well controlled. Objective - Vital Signs Vital signs: Vital Signs Temp 97.4 F L 03/09/23 12:00 Pulse 90 03/09/23 12:27 Resp 18 03/09/23 12:00 BP 102/65 03/09/23 12:00 Pulse Ox 91 L 03/09/23 12:00 FiO2 Intake & Output 03/08/23 03/09/23 03/09/23 18:59 06:59 18:59 Intake Total 2150 540 Output Total 385 2000 Balance 1765 -1999 540 Weight 81 kg Intake: IV 2150 20 Invasive Line 1 5 Invasive Line 2 15 Oral 520 Output: Chest Tube Drainage 75 Chest Tube Right 75 Urine 200 2000 Estimated Blood Loss 110 Other: Voiding Method Indwelling Catheter Indwelling Catheter Toilet - Exam GENERAL EXAM: Alert, pleasant 67-year-old female, on room air, fairly comfortable in no apparent distress. HEAD: Normocephalic. EYES: Normal reaction of pupils, equal size. NOSE: Clear with pink turbinates. THROAT: No erythema or exudates. NECK: No masses, no JVD. CHEST: No chest wall deformity. Right-sided chest tube in placed to Pleur-evac. No noted leak. LUNGS: Equal air entry with crackles, few scattered rhonchi of the right lung base. CVS: S1 and S2 normal with no audible murmur, regular rhythm. ABDOMEN: No hepatosplenomegaly, normal bowel sounds, no guarding or rigidity. SPINE: No scoliosis or deformity SKIN: No rashes CENTRAL NERVOUS SYSTEM: No focal deficits, tone is normal in all 4 extremities. EXTREMITIES: There is no peripheral edema. No clubbing, no cyanosis. Peripheral pulses are intact. - Labs CBC & Chem 7: 03/09/23 06:31 03/09/23 06:31 Labs: Abnormal Lab Results - Last 24 Hours (Table) 03/09/23 03/09/23 Range/Units 06:31 06:31 RBC 3.48 L (3.80-5.40) m/uL Hgb 11.3 L (11.4-16.0) gm/dL MCV 104.9 H (80.0-100.0) fL Neutrophils # 8.5 H (1.3-7.7) k/uL Lymphocytes # 0.7 L (1.0-4.8) k/uL Sodium 136 L (137-145) mmol/L Glucose 111 H (74-99) mg/dL Assessment and Plan Assessment: Early-stage non-small cell lung cancer/squamous cell carcinoma of the right lung. Status post bronchoscopy, right robotic-assisted thorascopic surgery with right upper lobectomy, mediastinal lymph node dissection. Postoperative day #1. Acute hypoxemic respiratory failure secondary to above, recovered and currently on room air Chronic and ongoing tobacco dependence, suspected COPD Coronary artery disease Hypertension Hyperlipidemia Plan: The patient was seen and evaluated Chest x-ray, labs and medications reviewed Continue bronchodilators Heparin for DVT prophylaxis Working well with the incentive spirometer Again educated regarding the importance of complete smoking cessation We will continue to follow I have personally seen and examined the patient, performed the documentation and the assessment and plan as written. Number of minutes spent on the visit: 10.
[2023-03-09] MEDS: ACETAMINOPHEN TAB 325 MG TAB PO PRN (16:40)
[2023-03-09] MEDS: traMADol 50 MG TAB PO PRN (16:40)
[2023-03-09] MEDS: MONTELUKAST 10 MG TAB PO SCH (20:56)
[2023-03-10] MEDS: HEPARIN SODIUM,PORCINE/PF 5,000 UNIT/0.5 ML SYRINGE SQ SCH ×2 (00:29→08:09)
[2023-03-10] MEDS: KETOROLAC 15 MG/ML 1 ML VIAL IVP SCH ×2 (00:29→05:31)
[2023-03-10] MEDS: HYDROmorphone 0.5 MG/0.5 ML SYRINGE IVP PRN ×2 (00:31→08:09)
[2023-03-10 05:10] LABS: HCT 33.1 % (34.0-46.0); HGB 10.3 gm/dL (11.4-16.0); MCH 31.9 pg (25.0-35.0); MCHC 31.1 g/dL (31.0-37.0); MCV 102.7 fL (80.0-100.0); Macrocytosis Slight; Mean Platelet Volume 8.4; Platelet Count 328 k/uL (150-450); RBC 3.22 m/uL (3.80-5.40); RDW 13.5 % (11.5-15.5); WBC 9.9 k/uL (3.8-10.6)
[2023-03-10 05:25] LABS: African American GFR (CKD) 75 (>60 ml/min/1.73 sqM); Anion Gap 6 mmol/L; Blood Urea Nitrogen 22 mg/dL (7-17); Calcium 8.8 mg/dL (8.4-10.2); Carbon Dioxide 27 mmol/L (22-30); Chloride 100 mmol/L (98-107); Glucose 93 mg/dL (74-99); Non-African American GFR(CKD) 65 (>60 ml/min/1.73 sqM); Potassium 4.7 mmol/L (3.5-5.1); Sodium 133 mmol/L (137-145)
[2023-03-10] MEDS: traMADol 50 MG TAB PO PRN (05:31)
[2023-03-10] MEDS: PANTOPRAZOLE 40 MG TABLET PO SCH (07:00)
[2023-03-10] MEDS: carvediloL 12.5 MG TAB PO SCH (07:00)
[2023-03-10] MEDS: IPRATROPIUM-ALBUTEROL 3 ML NEB IH SCH ×2 (08:04→08:25)
[2023-03-10] MEDS: lisinopriL 20 MG TAB PO SCH (08:12)
[2023-03-10] MEDS: FERROUS SULFATE 325 MG TAB PO SCH (08:12)
[2023-03-10] MEDS: ATORVASTATIN 80 MG TAB PO SCH (08:12)
[2023-03-10] MEDS: SENNOSIDES-DOCUSATE SODIUM 1 EACH TAB PO SCH (08:12)
[2023-03-10] MEDS: ASPIRIN 81 MG PO SCH (08:12)
[2023-03-10] MEDS: ISOSORBIDE MONONITRATE ER 30 MG TAB.ER.24H PO SCH (08:12)
[2023-03-10] MEDS: EZETIMIBE 10 MG TAB PO SCH (08:12)
[2023-03-10] MEDS: CLOPIDOGREL 75 MG TAB PO SCH (08:12)
[2023-03-10] MEDS: MULTIVITAMINS, THERA 1 EACH TAB PO SCH (08:12)
[2023-03-10] MEDS: TROSPIUM CHLORIDE 20 MG TABLET PO SCH (08:12)
[2023-03-10] MEDS ORDERED: HYDROmorphone 0.5 MG/0.5 ML SYRINGE IVP PRN (08:28)
--- NOTE | 2023-03-10 09:33 | P.PN ---
Subjective Progress Note Date: 03/10/23 Principal diagnosis: Non-small cell lung cancer. Previous medical history of tobacco dependence, COPD, coronary artery disease status post PCI in 2016, hypertension, hyperlipidemia, right carotid endarterectomy POD #2 bronchoscopy, right robotic assisted thoracoscopic surgery with right upper lobectomy, mediastinal lymph node dissection The patient was seen and examined his breathing sitting up in a recliner on the cardiac stepdown unit in no acute distress. States post surgical pain is mostly controlled with current medication regimen, denies shortness of breath. Curr ently on room air. [facility], no air leak present. Labs, chest x-ray reviewed, subcutaneous air present x-ray which is somewhat expected and inconsequential. No other new concerns. Objective - Vital Signs Vital signs: Vital Signs Temp 98.2 F 03/10/23 04:00 Pulse 72 03/10/23 04:00 Resp 20 03/10/23 04:00 BP 130/74 03/10/23 04:00 Pulse Ox 93 L 03/10/23 08:22 FiO2 Intake & Output 03/09/23 03/10/23 03/10/23 18:59 06:59 18:59 Intake Total 560 Balance 560 Intake: IV 40 Invasive Line 1 5 Invasive Line 2 15 Invasive Line 4 20 Oral 520 Other: Voiding Method Toilet Toilet # Voids 1 - Exam CONSTITUTIONAL: Appears comfortable, cooperative, no acute distress RESPIRATORY: Lungs sounds diminished bilaterally. Respirations even, nonlabored. Currently on room air with oxygen saturation 90%. Able to achieve 500 mL on incentive spirometry. Strong cough. CARDIOVASCULAR: S1, S2 present. Regular rate and rhythm, sinus rhythm on telemetry. Palpable peripheral pulses bilaterally. No edema present. No calf pain or tenderness noted. SCDs present. GASTROINTESTINAL: Abdomen soft, nontender, nondistended. Active bowel sounds present 4 quadrants. Tolerating diet GENITOURINARY: Continues to void INTEGUMENTARY: Skin is warm and dry with evidence of good perfusion NEUROLOGIC: Cranial nerves II through XII intact MUSKULOSKELETAL: Able to move all extremities, strength equal bilaterally, gait normal PSYCHIATRIC: Alert and oriented to person place and time, appropriate affect, intact judgment and insight INVASIVE LINES AND TUBES: Right pleural chest tube present to waterseal, no air leaks present, 200 mL serosanguineous drainage in the last 24 hours - Allied health notes Allied health notes reviewed: nursing - Labs CBC & Chem 7: 03/10/23 04:21 03/10/23 04:21 Labs: Abnormal Lab Results - Last 24 Hours (Table) 03/06/23 03/10/23 03/10/23 Range/Units 09:49 04:21 04:21 RBC 3.22 L (3.80-5.40) m/uL Hgb 10.3 L (11.4-16.0) gm/dL Hct 33.1 L (34.0-46.0) % MCV 102.7 H (80.0-100.0) fL Sodium 133 L (137-145) mmol/L BUN 22 H (7-17) mg/dL Crossmatch See Detail - Imaging and Cardiology Chest x-ray: image reviewed Assessment and Plan Assessment: Non-small cell lung cancer, status post bronchoscopy, right robotic assisted thoracoscopic surgery with right upper lobectomy, mediastinal lymph node dissection Tobacco dependence COPD Coronary artery disease status post PCI in 2016 Hypertension Hyperlipidemia Previous right carotid endarterectomy Plan: Chest tube discontinued without incident Follow-up on pathology Encourage incentive spirometry use 10 times every hour while awake. Bronchodilators per pulmonology Increase activity, ambulate as tolerated GI/DVT prophylaxis Pain control with current medication regimen Will repeat chest x-ray, if stable patient able to be discharged to home today with follow-up appointments made
--- NOTE | 2023-03-10 09:46 | XR ---
EXAMINATION TYPE: XR chest 2V DATE OF EXAM: 03/10/2023 COMPARISON: 03/08/2023 HISTORY: Follow-up chest tube insertion. Post lobectomy. TECHNIQUE: Frontal and lateral views of the chest are obtained. FINDINGS: There are postsurgical changes of right-sided lobectomy. There is a right-sided chest tube the tip of which is in the right lung apex. There is no pneumothorax. There is been reduction in the mild subcutaneous emphysema in the right supraclavicular region. There is mild left lower lobe atelectasis. Heart size is normal and the pulmonary vasculature is not congested. IMPRESSION: 1. No change in the position of the right-sided chest tube and there is no definite pneumothorax 2. Mild left lower lobe atelectasis. 3. Postsurgical changes of right sided lobectomy
--- NOTE | 2023-03-10 10:02 | P.PN ---
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 Endobronchial ultrasound was negative for mediastinal lymphadenopathy. Early- stage non-small cell lung cancer. She was referred to cardiothoracic surgery for a right upper lobectomy. She was brought in electively today. She did undergo a bronchoscopy, right robotic-assisted thoracoscopic surgery with right upper lobectomy, mediastinal lymph node dissection. She is seen today in the recovery room. She is awake and alert. Currently on 3 L nasal cannula with O2 saturations in the mid to upper 90s. Afebrile. Hemodynamically stable. Right- sided chest tube remains in place to Pleur-evac. Positive leak. 60 ML's of serosanguineous fluid out thus far. Chest x-ray reveals postsurgical changes from right-sided lobectomy with right-sided chest tube in place. Right neck subcutaneous emphysema. No sizable pneumothorax. She is on cefazolin. Continued on DuoNeb inhalations. Heparin for DVT prophylaxis. Educated regarding the use of the incentive spirometer. The patient is seen today 03/09/2023 in follow-up on the selective care unit. She is currently sitting up at the bedside. Awake and alert in no acute distress. Maintaining good O2 saturation in the 90s on room air. Afebrile. Hemodynamically stable. X-ray reveals right-sided chest tube in place. No pneumothorax noted. Diminishing right subcutaneous emphysema. Chest tube remains to Pleur-evac and can continuous wall suction. No air leak noted. Approximately 180 MLS serosanguineous return since surgery. She is working well with the incentive spirometer. Continued on bronchodilators. Heparin for DVT prophylaxis. Pain is well controlled. The patient is seen today 03/10/2023 in follow-up on the selective care unit. She is sitting up in a chair. Awake and alert in no acute distress. Maintaining O2 saturations in the 90s on room air. Working with the incentive spirometer. Afebrile. Hemodynamically stable. Having some surgical site discomfort. Chest tube remains in place. Chest x-ray reveals right-sided chest tube in place. No significant pneumothorax. Mild left lower lobe atelectasis. Postsurgical changes of right-sided lobectomy. Plan is to remove chest tube today per CT services. White count 9.9. Hemoglobin 10.3. Platelets 328. Sodium 133. Potassium 4.7. Bicarb 27. BUN 22. Creatinine 0.91. Continued on bronchodilators. Heparin for DVT prophylaxis. Objective - Vital Signs Vital signs: Vital Signs Temp 98.2 F 03/10/23 04:00 Pulse 72 03/10/23 04:00 Resp 20 03/10/23 04:00 BP 130/74 03/10/23 04:00 Pulse Ox 93 L 03/10/23 08:22 FiO2 Intake & Output 03/09/23 03/10/23 03/10/23 18:59 06:59 18:59 Intake Total 560 Balance 560 Intake: IV 40 Invasive Line 1 5 Invasive Line 2 15 Invasive Line 4 20 Oral 520 Other: Voiding Method Toilet Toilet # Voids 1 - Exam GENERAL EXAM: Alert, 67-year-old female, up in a chair, on room air, fairly comfortable in no apparent distress. HEAD: Normocephalic. EYES: Normal reaction of pupils, equal size. NOSE: Clear with pink turbinates. THROAT: No erythema or exudates. NECK: No masses, no JVD. CHEST: No chest wall deformity. Right-sided chest tube in placed to Pleur-evac. No noted leak. LUNGS: Equal air entry with crackles, few scattered rhonchi of the right lung base. CVS: S1 and S2 normal with no audible murmur, regular rhythm. ABDOMEN: No hepatosplenomegaly, normal bowel sounds, no guarding or rigidity. SPINE: No scoliosis or deformity SKIN: No rashes CENTRAL NERVOUS SYSTEM: No focal deficits, tone is normal in all 4 extremities. EXTREMITIES: There is no peripheral edema. No clubbing, no cyanosis. Peripheral pulses are intact. - Labs CBC & Chem 7: 03/10/23 04:21 03/10/23 04:21 Labs: Abnormal Lab Results - Last 24 Hours (Table) 03/06/23 03/10/23 03/10/23 Range/Units 09:49 04:21 04:21 RBC 3.22 L (3.80-5.40) m/uL Hgb 10.3 L (11.4-16.0) gm/dL Hct 33.1 L (34.0-46.0) % MCV 102.7 H (80.0-100.0) fL Sodium 133 L (137-145) mmol/L BUN 22 H (7-17) mg/dL Crossmatch See Detail Assessment and Plan Assessment: Early-stage non-small cell lung cancer/squamous cell carcinoma of the right lung. Status post bronchoscopy, right robotic-assisted thorascopic surgery with right upper lobectomy, mediastinal lymph node dissection on 03/08/2023 Acute hypoxemic respiratory failure secondary to above, recovered and currently on room air Chronic and ongoing tobacco dependence, suspected COPD Coronary artery disease Hypertension Hyperlipidemia Plan: The patient was seen and evaluated Chest x-ray, labs and medications reviewed Continue bronchodilators Heparin for DVT prophylaxis Working well with the incentive spirometer Again educated regarding the importance of complete smoking cessation Plan is for chest tube to be removed today per CT service We will continue to follow I have personally seen and examined the patient, performed the documentation and the assessment and plan as written. Number of minutes spent on the visit: 10.
[2023-03-10 10:04] VITALS: BP 104/55; PULSE 79; RESP 18; TEMP 96.2
--- NOTE | 2023-03-10 10:40 | P.DS ---
Providers Date of admission: 03/08/23 07:24 Expected date of discharge: 03/10/23 Attending physician: Bernardino Baeza MD Consults: 03/08/23 14:12 Consult Physician Routine Consulting Provider: Bart Mane Consult Reason/Comments: post lobectomy; known to you Do you want consulting provider notified?: Yes [facility]: FINAL DIAGNOSIS: 1. Non-small cell lung cancer 2. Current tobacco dependence 3. COPD, preoperative FEV1 94% of predicted, DLCO 52% of predicted 4. Coronary artery disease status post PCI in 2016 5. Hypertension 6. Hyperlipidemia 7. Previous right carotid endarterectomy PRINCIPAL PROCEDURE: 1. Bronchoscopy 2. Robotic-assisted thoracoscopic right upper lobectomy 3. Mediastinal lymph node dissection HISTORY OF PRESENT ILLNESS: This is a 67-year-old female patient who follows with Dr. Kenney for primary care and Dr. Mane for pulmonology. She is a known smoker and had a limited bout of hemoptysis. Her renderer ordered a CT of the chest revealing a 3 cm nodule in the right upper lobe. PET/CT was also completed demonstrating FDG avidity in the nodule without any evidence of metastatic disease in the mediastinum or elsewhere. The patient was referred to Dr. Baeza from cardiothoracic surgery. She was recommended to undergo robotic- assisted biopsy of the lesion for tissue diagnosis as the patient was nervous to undergo surgical lobectomy without a preoperative diagnosis. Pathology revealed non-small cell carcinoma. The patient was then agreeable to surgical lobectomy, the usual perioperative course was discussed in detail with the patient and her family, all risks and benefits were explained, all questions were answered, and consent was obtained to proceed with surgery. The patient was scheduled for elective surgery at the earliest possible date. HOSPITAL COURSE: The patient was brought to the hospital on 03/08/23, taken to the preoperative area, prepared in the usual fashion, and subsequently taken to the operating room where Dr. Baeza performed a robotic-assisted right upper lobectomy and mediastinal lymph node dissection. Upon completion of surgery the patient was extubated and taken to the recovery room for further hemodynamic monitoring. She was eventually admitted to 3 S. cardiac stepdown unit for further recovery. Her chest tube was discontinued on postoperative day #2, repeat chest x-ray was stable. Her oxygen was titrated down, she was tolerating oral diet, her pain was mostly controlled, and she was ready to be discharged to home on postoperative day #2. She received written and verbal instruction regarding her medications, activity restrictions, signs and symptoms requiring physician notification, and follow-up appointments. Patient Condition at Discharge: Stable Plan - Discharge Summary Discharge Rx Participant: No New Discharge Prescriptions: New Acetaminophen Tab [Tylenol] 650 mg PO Q4HR PRN tab PRN Reason: Mild To Moderate Pain (1 - 6) Sennosides-Docusate Sodium [Senokot-S] 1 each PO BID PRN tab PRN Reason: Constipation traMADol HCl [Ultram] 50 mg PO QID PRN #28 tab PRN Reason: Breakthrough Pain Continue carvediloL [Coreg] 12.5 mg PO BID Ferrous Sulfate [Iron (65 MG Elemental)] 325 mg PO BID Enalapril Maleate 20 mg PO BID Clopidogrel Bisulfate [Clopidogrel] 75 mg PO DAILY NIFEdipine XL [Procardia XL] 60 mg PO DAILY Montelukast [Singulair] 10 mg PO HS Isosorbide Mononitrate [Isosorbide Mononitrate ER] 30 mg PO DAILY Ezetimibe [Zetia] 10 mg PO DAILY Rosuvastatin Calcium 40 mg PO DAILY Multivitamins, Thera [Multivitamin (formulary)] 1 tab PO DAILY Solifenacin Succinate [Vesicare] 5 mg PO DAILY Aspirin 81 mg PO DAILY Discharge Medication List Clopidogrel Bisulfate [Clopidogrel] 75 mg PO DAILY 11/07/16 [History] Enalapril Maleate 20 mg PO BID 11/07/16 [History] Ferrous Sulfate [Iron (65 MG Elemental)] 325 mg PO BID 11/07/16 [History] NIFEdipine XL [Procardia XL] 60 mg PO DAILY 11/07/16 [History] carvediloL [Coreg] 12.5 mg PO BID 11/07/16 [History] Isosorbide Mononitrate [Isosorbide Mononitrate ER] 30 mg PO DAILY 01/23/23 [History] Montelukast [Singulair] 10 mg PO HS 01/23/23 [History] Multivitamins, Thera [Multivitamin (formulary)] 1 tab PO DAILY 01/23/23 [History] Rosuvastatin Calcium 40 mg PO DAILY 01/23/23 [History] Aspirin 81 mg PO DAILY 03/05/23 [History] Ezetimibe [Zetia] 10 mg PO DAILY 03/05/23 [History] Solifenacin Succinate [Vesicare] 5 mg PO DAILY 03/05/23 [History] Acetaminophen Tab [Tylenol] 650 mg PO Q4HR PRN tab 03/10/23 [Rx] Sennosides-Docusate Sodium [Senokot-S] 1 each PO BID PRN tab 03/10/23 [Rx] traMADol HCl [Ultram] 50 mg PO QID PRN #28 tab 03/10/23 [Rx] Follow up Appointment(s)/Referral(s): Kindra Kenney MD [Primary Care Provider] - As Needed Bart Mane MD [STAFF PHYSICIAN] - 03/21/23 11:00 am Bernardino Baeza MD [STAFF PHYSICIAN] - 03/28/23 2:00 pm Patient Instructions/Handouts: Lung Lobectomy (DC), Video Assisted Thoracoscopic Surgery (DC) Activity/Diet/Wound Care/Special Instructions: DISCHARGE INSTRUCTIONS: 1. No driving for 2 weeks, or until physician gives their ok. 2. No lifting, pushing, or pulling more than 10 pounds for 2 weeks. The physician will advise of any restriction changes. 3. Continue pain control per as needed orders. Alternate acetaminophen (Tylenol) and ibuprofen (Motrin/Advil) for pain. 4. Continue with incentive spirometry and splinting until otherwise directed by the physician. 5. Leave chest tube dressing for 48 hours. After that, remove all dressings and shower daily. 6. Routine incision care. No powders, lotions, ointments on incisions. 7. Please call surgeon/TIE INSPECTOR for temp greater than 101 F or purulent drainage from incisions. 8. Smoking cessation counseling and program information provided. Quitting smoking is the most important step you can take to improve your health. For additional information and assistance to quit smoking, please call the [place] tobacco quit line (6-078-JVEO-NOW/ ) or online: https://www.[place].gov/[email or web address]-ix-cgkutnf/chronicdise [email or web address]/kds-vz-[email or web address]-tobacco Discharge Disposition: HOME SELF-CARE
--- NOTE | 2023-03-10 11:15 | XR ---
EXAMINATION TYPE: XR chest 1V portable DATE OF EXAM: 03/10/2023 COMPARISON: 03/10/2023 earlier exam INDICATION: Post chest tube removal TECHNIQUE: Single frontal view of the chest is obtained. FINDINGS: The heart size is normal. The pulmonary vasculature is normal. There is fullness in the right hilar region. Postsurgical sutures within the right hilar region. Right-sided chest tube is been removed. Mild residual pneumothorax may be at the left apex. Follow-up is recommended. IMPRESSION: 1. Small residual right apical pneumothorax. Follow-up is recommended.
== END 2023-03-10 11:11 | disposition home or self-care (01) | DRG 163 ==
LOC: 2ORMAIN 07:24 → 3SCARD 14:00
PROVIDERS: ADMIT Thoracic Surgery (Cardiothoracic Vascular Surgery); ATTEND Thoracic Surgery (Cardiothoracic Vascular Surgery)
PROC: 07B74ZX Excision of Thorax Lymphatic, Percutaneous Endoscopic Approach, Diagnostic (ICD-10-PCS; principal; 2023-03-08 09:30)
PROC: 0BJ08ZZ Inspection of Tracheobronchial Tree, Via Natural or Artificial Opening Endoscopic (ICD-10-PCS; principal; 2023-03-08 09:30)
PROC: 8E0W4CZ Robotic Assisted Procedure of Trunk Region, Percutaneous Endoscopic Approach (ICD-10-PCS; principal; 2023-03-08 09:30)
PROC: 0W9940Z Drainage of Right Pleural Cavity with Drainage Device, Percutaneous Endoscopic Approach (ICD-10-PCS; principal; 2023-03-08 09:30)
PROC: 0BTC4ZZ Resection of Right Upper Lung Lobe, Percutaneous Endoscopic Approach (ICD-10-PCS; principal; 2023-03-08 09:30)
DX: C34.11 Malignant neoplasm of upper lobe, right bronchus or lung (principal); J96.01 Acute respiratory failure with hypoxia; J98.11 Atelectasis; R04.2 Hemoptysis; J94.8 Other specified pleural conditions; F17.210 Nicotine dependence, cigarettes, uncomplicated; J44.9 Chronic obstructive pulmonary disease, unspecified; I25.10 Atherosclerotic heart disease of native coronary artery without angina pectoris; E78.5 Hyperlipidemia, unspecified; I10 Essential (primary) hypertension; Z79.02 Long term (current) use of antithrombotics/antiplatelets; Z79.82 Long term (current) use of aspirin; Z79.899 Other long term (current) drug therapy; Z98.61 Coronary angioplasty status; Z71.6 Tobacco abuse counseling; Z80.9 Family history of malignant neoplasm, unspecified; D64.9 Anemia, unspecified
CPT/HCPCS: 64999; 71045; 71046; 80048; 85025; 85027; 86850; 86900; 86901; 86920; 88305; 88307; 88309; 88313; 94640; 94760

== ENCOUNTER → 2023-07-11 | Outpatient (CLI) | payer MEDICARE ==
[2023-07-11 14:51] LABS: African American GFR (CKD) 74 (>60 ml/min/1.73 sqM); Blood Urea Nitrogen 17 mg/dL (7-17); Non-African American GFR(CKD) 64 (>60 ml/min/1.73 sqM)
--- NOTE | 2023-07-12 08:36 | CT ---
EXAMINATION TYPE: CT ChestAbdPelvis w con CT DLP: 1150.4 mGycm, Automated exposure control for dose reduction was used. DATE OF EXAM: 07/11/2023 4:28 PM COMPARISON: CT chest 01/25/2023, PET/CT 12/27/2022 CLINICAL INDICATION:Female, 67 years old with history of C34.11 lung ca; PHH, h/o lung CA Technique: Multiple axial images of the chest, abdomen, and pelvis were obtained following the intrav enous administration of 100 mL Isovue-300. Oral contrast was administered. Two-dimensional coronal an d sagittal reconstructions were obtained. Findings: CHEST: LUNGS/ PLEURA: Postsurgical changes from right upper lobectomy with suture material identified. No CT evidence for recurrence. No suspicious pulmonary nodule mass. No focal consolidation, pneumothorax, pleural effusion. AIRWAY: Patent and unremarkable.. HEART: Mildly enlarged. No pericardial effusion. Moderate to severe coronary artery calcifications. MEDIASTINUM: No evidence of adenopathy. VASCULATURE: No aortic aneurysm. Atherosclerotic calcification of the aorta and its branches. Mild s tenosis origin left subclavian artery secondary to calcified plaque. MUSCULOSKELETAL: No acute osseous abnormalities. SOFT TISSUES/LYMPH NODES: Unremarkable. LOWER NECK: No significant findings. ABDOMEN: ABDOMEN LIVER: Unremarkable GALLBLADDER AND BILE DUCTS: Unremarkable. PANCREAS: Unremarkable. SPLEEN: Unremarkable. ADRENAL GLANDS: Unremarkable. KIDNEYS AND URETERS: No evidence of hydronephrosis or renal calculus. Atrophy of the left kidney. Non specific left perinephric fat joint. Prominent bilateral extrarenal pelvises. PELVIS BLADDER: Unremarkable REPRODUCTIVE: Fibroid changes uterus with a right fundal calcified 3.3 cm fibroid. ABDOMEN & PELVIS STOMACH AND BOWEL: Small hiatal hernia. Diverticulum involving the third portion of the duodenum. Dis bear colonic diverticulosis without evidence for acute diverticulitis. Enteric contrast reaches the as cending colon. The appendix is within normal limits. No evidence of bowel obstruction. PERITONEUM: No evidence of pneumoperitoneum or free fluid. VASCULATURE: Moderate atherosclerotic calcifications are present throughout the abdominal aorta and i ts branches. No abdominal aortic aneurysm. Moderate stenosis of the bilateral common iliac artery sec ondary to calcified plaque. Moderate stenosis at the origin of the SMA secondary to calcified plaque. Mild stenosis origin of the celiac axis secondary to calcified plaque. Moderate stenosis origin of t he bilateral single renal arteries. MUSCULOSKELETAL: No acute osseous abnormalities. Chronic anterior wedge compression deformity of the L2 vertebral bodies approximately 10% height loss and no retropulsion. Mild to moderate multilevel de generative disc disease of the lower lumbar spine. No aggressive osseous lesion. S-shaped scoliotic c urvature of the thoracal lumbar spine. LYMPH NODES: No evidence for lymphadenopathy. SOFT TISSUE/ABDOMINAL WALL: Unremarkable IMPRESSION: 1. Postsurgical changes from right upper lobectomy. No evidence for local recurrence or metastatic di sease within the chest, abdomen and pelvis. 2. Atrophy of the left kidney. 3. Chronic anterior wedge compression deformity L2 vertebral body. 4. Colonic diverticulosis without evidence for acute diverticulitis. 5. Fibroid changes of the uterus. 6. Coronary artery calcifications with moderate atherosclerotic calcification of the aorta and its br anches resulting in varying degrees of stenosis as described above.
== END | disposition home or self-care (01) ==
LOC: RADCTMAIN 14:15
PROVIDERS: ATTEND Internal Medicine Hematology & Oncology
DX: C34.11 Malignant neoplasm of upper lobe, right bronchus or lung (principal); D50.0 Iron deficiency anemia secondary to blood loss (chronic); I10 Essential (primary) hypertension; E78.2 Mixed hyperlipidemia; N26.1 Atrophy of kidney (terminal); K57.30 Diverticulosis of large intestine without perforation or abscess without bleeding; D25.9 Leiomyoma of uterus, unspecified; I25.10 Atherosclerotic heart disease of native coronary artery without angina pectoris; M48.56XA Collapsed vertebra, not elsewhere classified, lumbar region, initial encounter for fracture
CPT/HCPCS: 82565; 84520; 71260; 74177; 36415; Q9967

== ENCOUNTER → 2023-10-09 | Outpatient (CLI) | payer MEDICARE ==
[2023-10-09 14:30] LABS: African American GFR (CKD) 79 (>60 ml/min/1.73 sqM); Blood Urea Nitrogen 20 mg/dL (7-17); Non-African American GFR(CKD) 68 (>60 ml/min/1.73 sqM)
--- NOTE | 2023-10-09 14:58 | CT ---
EXAMINATION TYPE: CT chest w con DATE OF EXAM: 10/09/2023 COMPARISON: 07/11/2023 HISTORY: Hx of lung CA. Rt side lobectomy in February of 2023. CT DLP: 412.6 mGycm, Automated exposure control for dose reduction was used. CONTRAST: Performed injected with 100 ml mL of Isovue 300. TECHNIQUE: Axial images were obtained at 5 mm thick sections. Reconstructed images are reviewed on [employer] computer in the coronal plane. FINDINGS: Portion of the thyroid visualized is normal. No suspicious lung nodules or focal infiltrates are present. Azygos lobe is noted. Postsurgical garcia es evident on right. No enlarged mediastinal or hilar adenopathy is evident. The ascending aorta diameter at the level o f the main pulmonary artery is 3.4 cm. The main pulmonary artery diameter at the bifurcation is 3.[address] sections are obtained through the upper abdomen. Left kidney appears atrophic with some hy dronephrosis. IMPRESSION: 1. No suspicious changes to suggest recurrent or metastatic lung cancer
== END | disposition home or self-care (01) ==
LOC: RADCTMAIN 13:48
PROVIDERS: ATTEND Internal Medicine Hematology & Oncology
DX: C34.11 Malignant neoplasm of upper lobe, right bronchus or lung (principal); I10 Essential (primary) hypertension; D50.0 Iron deficiency anemia secondary to blood loss (chronic); E78.2 Mixed hyperlipidemia; Z90.2 Acquired absence of lung [part of]
CPT/HCPCS: 82565; 84520; 71260; Q9967

== ENCOUNTER 2024-01-03 10:48 | Day surgery (SDC) | payer MEDICARE ==
[2024-01-01 12:44] VITALS: BMI 29.2
[2024-01-03] MEDS: LACTATED RINGERS 1,000 ML IV SCH (11:30)
[2024-01-03] MEDS ORDERED: LIDOCAINE 1% INJ 10MG/ML (20 ML MDV) ONE (11:37)
[2024-01-03] MEDS ORDERED: PROPOFOL 10 MG/ML 20 ML VIAL IV ONE (11:37)
[2024-01-03 11:44] VITALS: TEMP 97.5
--- NOTE | 2024-01-03 11:48 | P.PCN ---
Date of Procedure: 01/03/24 Procedure(s) Performed: BRIEF HISTORY: Patient is a 68-year-old pleasant female scheduled for an upper endoscopy as a part of evaluation of Iron deficiency anemia.She denies any GI bleed. Last colonoscopy was in February 2020 multiple colon polyps. PROCEDURE PERFORMED: Esophagogastroduodenoscopy with biopsy and cautery. PREOPERATIVE DIAGNOSIS: Iron deficiency anemia IV sedation per anesthesia. PROCEDURE: After informed consent was obtained, the patient was brought into the endoscopy unit. IV sedation was administered by Anesthesia under continuous monitoring. Initially the Olympus GIF-140 video endoscope was inserted into the mouth. Esophagus intubated without any difficulty. It was gradually advanced into the stomach and duodenum and carefully examined. The bulb and the second part of the duodenum had 2 small nonbleeding arterial venous malformation that were cauterized using a gold probe. Biopsies were done from the duodenum to rule out celiac disease. The scope at this time was withdrawn to the stomach, adequately insufflated with air, and upon careful examination, mucosa of the antrum, body, cardia and the fundus appeared normal. The scope was then withdrawn into the esophagus. The GE junction was located at 39 cm from the incisors. The esophagus appeared normal. There were no erosions or ulcerations seen and the patient tolerated the procedure well. 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 She was advised to continue with iron supplements and monitor CBC periodically. Follow with Dr. Ferrer scheduled..
[2024-01-03 12:29] VITALS: BP 105/67; PULSE 78; RESP 16
== END 2024-01-03 12:32 | disposition home or self-care (01) ==
LOC: ORWHC2ENDO 10:48
PROVIDERS: ATTEND Internal Medicine Gastroenterology
DX: K29.50 Unspecified chronic gastritis without bleeding (principal); D50.9 Iron deficiency anemia, unspecified; K63.5 Polyp of colon; I10 Essential (primary) hypertension; E78.5 Hyperlipidemia, unspecified; I72.9 Aneurysm of unspecified site; Z79.899 Other long term (current) drug therapy; Z79.82 Long term (current) use of aspirin
CPT/HCPCS: 88305; 43239; J2001; J2704; 43255

== ENCOUNTER → 2024-04-08 | Outpatient (CLI) | payer MEDICARE ==
[2024-04-08 11:03] LABS: African American GFR (CKD) 86 (>60 ml/min/1.73 sqM); Blood Urea Nitrogen 17 mg/dL (7-17); Non-African American GFR(CKD) 75 (>60 ml/min/1.73 sqM)
--- NOTE | 2024-04-12 12:50 | CT ---
EXAMINATION TYPE: CT Chest Abd Pelvis w con CT DLP: 2134 mGycm, Automated exposure control for dose reduction was used. DATE OF EXAM: 04/08/2024 12:15 PM COMPARISON: None. CLINICAL INDICATION:Female, 68 years old with history of C34.11 MALIGNANT NEOPLASM OF UPPER LOBE, RIG HT BRONCHUS; PHH, lung carcinoma. Technique: CT Chest Abd Pelvis w con; Multiple axial images were obtained. Two-dimensional coronal an d sagittal reconstructions were obtained. Contrast used:100 mL of Isovue 300 , Oral contrast used: with Oral Contrast Findings: CHEST: LUNGS/ PLEURA: The lung parenchyma appears unremarkable. AIRWAY: Patent and unremarkable. HEART: Size within normal limits. MEDIASTINUM: No gross evidence of adenopathy. VASCULATURE: No aortic aneurysm. MUSCULOSKELETAL: No acute osseous abnormalities. SOFT TISSUES/LYMPH NODES: Unremarkable. LOWER NECK: No significant findings. ABDOMEN: ABDOMEN LIVER: Unremarkable GALLBLADDER AND BILE DUCTS: Unremarkable. PANCREAS: Unremarkable. SPLEEN: Unremarkable. ADRENAL GLANDS: Unremarkable. KIDNEYS AND URETERS: Left hydronephrosis and hydroureter of the upper third of the left ureter. Right kidney is unremarkable. PELVIS BLADDER: Unremarkable REPRODUCTIVE: 3.2 cm calcified degenerating leiomyoma. ABDOMEN & PELVIS STOMACH AND BOWEL: No evidence of bowel obstruction. PERITONEUM: No evidence of pneumoperitoneum or free fluid. VASCULATURE: No evidence of aortic aneurysm. MUSCULOSKELETAL: No acute osseous abnormalities. No lytic or sclerotic bone metastatic disease apprec iated. Degenerative disc disease and vacuum disc phenomenon at multiple levels in the lumbar spine. LYMPH NODES: No gross evidence for lymphadenopathy. SOFT TISSUE/ABDOMINAL WALL: Unremarkable IMPRESSION: No evidence of local recurrence of right upper lobe bronchus lung cancer and no evidence of metastati c disease. Follow up recommendations for incidental pulmonary nodules are per [employer] or [employer].
== END | disposition home or self-care (01) ==
LOC: RADCTMAIN 10:02
PROVIDERS: ATTEND Internal Medicine Hematology & Oncology
DX: C34.11 Malignant neoplasm of upper lobe, right bronchus or lung (principal)
CPT/HCPCS: 82565; 84520; 71260; 74177; 36415; Q9967

== ENCOUNTER → 2024-05-28 | Outpatient (CLI) | payer MEDICARE ==
[2024-05-28 10:31] LABS: African American GFR (CKD) 74 (>60 ml/min/1.73 sqM); Blood Urea Nitrogen 15 mg/dL (7-17); Non-African American GFR(CKD) 65 (>60 ml/min/1.73 sqM)
--- NOTE | 2024-05-28 11:34 | CT ---
EXAMINATION TYPE: CT urogram wo/w con CT DLP: 3720 mGycm, Automated exposure control for dose reduction was used. DATE OF EXAM: 05/28/2024 11:19 AM COMPARISON: CT chest abdomen and pelvis 324, 07/11/2023 CLINICAL INDICATION:Female, 68 years old with history of N13.39 Hydronephrosis of left kidney; PHH, H YDRONEPHROSIS TECHNIQUE: Urogram of the abdomen and pelvis was performed before and after the administration of 100 cc of IV c ontrast Isovue 300 contrast. Delayed imaging was performed. Coronal and sagittal reformats were perfo rmed. One or more CT dose reduction strategies were utilized during this examination. 2D and 3D recon structions are performed to assist visualization of the urinary tract on a separate workstation. FINDINGS: GENITOURINARY: RIGHT KIDNEY AND URETER: No calculi. No hydronephrosis or hydroureter. Small right anterior mid exoph ytic cortical 1 cm cyst. Contrast is demonstrated throughout the right ureter on delayed imaging. No urothelial lesions: no filling defect, dilation, stricture or wall thickening. LEFT KIDNEY AND URETER: No renal calculi. Renal vascular calcifications identified. Moderate hydroure teronephrosis with focal transition in the distal ureter at the level of the sacrum. No contrast is d emonstrated within the left collecting system at the 10 minute delayed marked. No obstructing calculu s identified. No renal mass or other lesions. Similar perinephric fat stranding. Cortical thinning of the entire kidney. No urothelial lesions: no filling defect, dilation, stricture or wall thickening. URINARY BLADDER: Moderately well distended. Normal, no calculi, mass or other lesions. REPRODUCTIVE: Calcified uterine fibroid changes with largest measuring up to 3.4 cm.. ABDOMEN LIVER: Unremarkable. GALLBLADDER AND BILE DUCTS: Unremarkable PANCREAS: Unremarkable. SPLEEN: Unremarkable. ADRENAL GLANDS: Unremarkable. STOMACH AND BOWEL: Sigmoid diverticulosis. Distal duodenal diverticulum. No evidence of bowel obstruc tion. PERITONEUM: No evidence of pneumoperitoneum, free fluid, or adenopathy. VASCULATURE: Moderate to severe atherosclerotic calcifications are present throughout the abdominal a wolf and its branches. High-grade stenosis at the origins of the celiac axis, proximal SMA, bilateral renal artery origins. Moderate to high-grade stenosis involving multifocal, and iliac and external i liac arteries. MUSCULOSKELETAL: No acute osseous abnormalities. S-shaped scoliotic curvature. Grade 1 anterolisthesi s of L3 and L4. Anterior wedging of the L2 vertebral body. SOFT TISSUE/ABDOMINAL WALL: Unremarkable. LOWER CHEST: Mildly enlarged heart. Severe coronary artery calcifications. IMPRESSION: 1. Similar moderate left hydroureteronephrosis with focal transition in the distal ureter without obs tructing calculus. No contrast is demonstrated within the left collecting system on delayed imaging i ndicating poor renal function. This limits evaluation of the ureter. Additionally there is cortical t hinning thinning of the left kidney suggesting long-standing obstruction. No CT evidence of urolithia sis or enhancing renal/urothelial neoplasm. 2. Severe atherosclerotic calcification of the aorta and its branches as described above. [facility], , 05/28/2024 11:31 AM
== END | disposition home or self-care (01) ==
LOC: RADCTMAIN 09:37
PROVIDERS: ATTEND Urology
DX: N13.39 Other hydronephrosis
CPT/HCPCS: 36415; 74178; 74400; 82565; 84520

== ENCOUNTER 2024-11-21 07:28 | Day surgery (SDC) | payer MEDICARE ==
[2024-11-19 14:00] VITALS: BMI 30.9
[2024-11-21] MEDS: IV FLUID CONTINUATION 1,000 ML IV ONE (08:07)
[2024-11-21 08:19] VITALS: RESP 16; TEMP 97.6
[2024-11-21] MEDS: LACTATED RINGERS 1,000 ML IV SCH (08:19)
[2024-11-21] MEDS ORDERED: LIDOCAINE 1% INJ 10MG/ML (20 ML MDV) ONE (08:40)
[2024-11-21] MEDS ORDERED: PROPOFOL 10 MG/ML 20 ML VIAL IV ONE (08:40)
--- NOTE | 2024-11-21 09:03 | P.PCN ---
Date of Procedure: 11/21/24 Procedure(s) Performed: Brief history: Patient is a pleasant 69-year-old white female scheduled for an elective upper endoscopy as well as colonoscopy as a part of evaluation of iron deficiency anemia. She denies any GI symptoms. Procedure performed: Esophagogastroduodenoscopy with biopsy Colonoscopy with snare polypectomy Preoperative diagnosis: Iron deficiency anemia. Anesthesia: MAC Procedure: After informed consent was obtained from the patient was brought into the endoscopy unit and IV sedation was administered by anesthesia under continuous monitoring. Initially upper endoscopy was done. The Olympus GF 160 video endoscope was inserted inserted into the mouth and esophagus intubated without any difficulty and was gradually advanced into the stomach and duodenum and carefully examined. The bulb and second part of the duodenum appeared normal. Biopsies were done from the duodenum rule out celiac disease. The scope was then withdrawn into the stomach adequately insufflated with air and upon careful examination the antrum had patchy areas of erythema consistent with gastritis. Biopsies were done from this area. Mucosa of the body, cardia and fundus appeared normal. The scope was then withdrawn into the esophagus. The GE junction was located at 40 cm to the incisors. It appeared regular with mild erythema and 1 superficial erosion consistent with LA grade B reflux esophagitis.. Rest of the esophagus appeared normal. Patient tolerated the procedure well. At this time the patient continued to remain sedation. Initial digital rectal examination was normal. Olympus CF 160 video colonoscope was then inserted into the rectum and gradually advanced to the cecum without any difficulty. Careful examination was performed as the scope was gradually being withdrawn. The prep was excellent. The cecum, 5 cm flat polyp that was removed by snare polypectomy. The ascending colon revealed 2 polyps measuring 5 mm and 6 mm in size removed by snare polypectomy. Rest of the ascending colon, transverse colon, descending colon, sigmoid colon and rectum appeared normal. In the rectum there were 2 polyps measuring 5 mm in size removed by snare polypectomy. Scattered sigmoid diverticulosis seen. Retroflexion was performed in the rectum and no lesions were noted. Patient tolerated the procedure well. Impression: 1. Upper endoscopy revealed mild antral gastritis and LA grade B reflux esophagitis 2. Colonoscopy revealed: 1.5 cm flat cecal polyp status post snare polypectomy 5 mm and 6 mm ascending colon polyp status post polypectomy 5 mm x 2 rectal polyp status post polypectomy Small internal hemorrhoids and scattered sigmoid diverticulosis Recommendations: Findings of this examination were discussed with the patient as well as her family. She was advised to follow-up with the biopsy results. If the biopsy reveals adenoma she can have repeat colonoscopy in 3 years..
[2024-11-21 09:27] VITALS: BP 132/80; PULSE 69
== END 2024-11-21 09:53 | disposition home or self-care (01) ==
LOC: ORWHC2ENDO 07:28
PROVIDERS: ATTEND Internal Medicine Gastroenterology
DX: K29.50 Unspecified chronic gastritis without bleeding (principal); D12.2 Benign neoplasm of ascending colon; K62.1 Rectal polyp; K21.00 Gastro-esophageal reflux disease with esophagitis, without bleeding; K57.30 Diverticulosis of large intestine without perforation or abscess without bleeding; K64.8 Other hemorrhoids; D50.9 Iron deficiency anemia, unspecified; C34.90 Malignant neoplasm of unspecified part of unspecified bronchus or lung; I25.10 Atherosclerotic heart disease of native coronary artery without angina pectoris; I10 Essential (primary) hypertension; E78.5 Hyperlipidemia, unspecified; Z79.02 Long term (current) use of antithrombotics/antiplatelets; Z79.899 Other long term (current) drug therapy
CPT/HCPCS: 88305; 45385; 43239; J2003; J2704